=== PATIENT | female | born 1990 | race American Indian/Alaskan Native ===

== ENCOUNTER 2016-09-30 16:56 | Emergency (ER) | payer MEDICAID ==
--- NOTE | 2016-09-30 17:49 | Emergency Department Report ---
Chief Complaint: Abdominal Pain Stated Complaint: MIGRAINE HEADACHE/ABD PAIN Time Seen by Provider: 09/30/16 17:45 - HPI History of Present Illness: 26 y/o female complain of abdominal pain x 4 days .pt state that she had a seizure on thrusday .denies any vaginal discharge . - ROS Review of Systems: per HPI - Exam Vital Signs: Vital Signs 09/30/16 17:00 Temperature 98.4 F Pulse Rate 86 Respiratory 18 Rate Blood Pressure 133/85 O2 Sat by Pulse 100 Oximetry Physical Exam: GENERAL: The patient is well-developed and well-nourished. Patient is in NAD. HENT: Normocephalic. Atraumatic. Patient has moist mucous membranes. Throat: No erythema, swelling or exudates. Ears:Tympanic membranes pearly nichols ,intact , and free of exudate and erythema . EYES: Extraocular motions are intact, PERRL NECK: Supple. No meningitic signs are noted. There is no adenopathy noted. CHEST/LUNGS: Clear to auscultation bilaterally. No wheezing, rales or rhonchi noted. There is no respiratory distress noted. HEART/CARDIOVASCULAR: Regular rate and rhythm. Normal S1 S2. No murmurs, rubs , clicks, or gallops. ABDOMEN: Abdomen is soft, nontender.. Bowel sounds normoactive. There is no abdominal distention. Negative rebound tenderness. : Deferred. SKIN: There is no rash. There is no edema. There is no diaphoresis.Normal skin turgor NEURO: The patient is A&Ox3. The patient has no focal neurologic deficits. MUSCULOSKELETAL: There is no tenderness or deformity. There is no limitation range of motion. posture erect.Spine aligned,no deformities. PSYCH: Pt has appropriate mood and affect. MSE screening note: Focused history and physical exam performed. Due to findings the following was ordered: ED Disposition for MSE Condition: Stable Instructions: Abdominal Pain (ED)
[2016-09-30 18:41] LABS: Basophils % (Auto) 0.4 % (0.0-1.8); Eosinophils % (Auto) 0.3 % (0.0-4.3); Hemoglobin 11.7 gm/dl (10.1-14.3); Mean Corpuscular HGB Conc 32 % (30-34); Mean Corpuscular Volume 79 fl (79-97); Platelet Count 291 K/mm3 (140-440); Red Blood Count 4.67 M/mm3 (3.65-5.03); Red Cell Distribution Width 18.8 % (13.2-15.2); White Blood Count 5.1 K/mm3 (4.5-11.0)
[2016-09-30 18:42] LABS: Mean Corpuscular Hemoglobin 25 pg (28-32)
[2016-09-30 19:00] LABS: BUN/Creatinine Ratio 11.66; Blood Urea Nitrogen 7 mg/dL (7-17); Calcium 9.3 mg/dL (8.4-10.2); Carbon Dioxide 24 mmol/L (22-30); Chloride 99.9 mmol/L (98-107); Glucose 71 mg/dL (65-100); Potassium 3.6 mmol/L (3.6-5.0); Sodium 139 mmol/L (137-145)
[2016-09-30 19:11] LABS: Anion Gap 19 mmol/L
[2016-09-30 21:32] LABS: Bacteria,Urine 1+ /HPF (Negative); Bilirubin,Urine NEG (Negative); Blood,Urine NEG (Negative); Ketones,Urine NEG (Negative); Leukocyte Esterase,Urine TR (Negative); Mucus,Urine 3+ /HPF; Nitrite,Urine NEG (Negative); Protein,Urine <15 mg/dL mg/dL (Negative); Urobilinogen,Urine < 2.0 mg/dL (<2.0)
[2016-10-01] MEDS ORDERED: TYLENOL PO ONE (02:02)
--- NOTE | 2016-10-01 02:08 | Emergency Department Report ---
ED Abdominal Pain HPI - General Chief Complaint: Abdominal Pain Stated Complaint: MIGRAINE HEADACHE/ABD PAIN Source: patient Mode of arrival: Ambulatory Limitations: No Limitations - History of Present Illness Initial Comments: 26-year-old female with a past medical history of seizures and hypertension presents to the hospital with complaints of seizure and abdominal pain. Patient had a seizure 2 days ago at work. Patient came here to be seen left prior to evaluation. Since she has had intermittent left-sided aching 8/10 headache. No aggravating or alleviating factors reported. Patient hasn't taken anything for pain. She states she felt weak prior to the seizure. Patient's last seizure was 2 years ago when she was . She was not treated with seizure medication during the and is not currently on any seizure medication. LMP reported August 27 with . Patient complains of mild lower abdominal pain since seizure but denies vaginal discharge, vaginal bleeding, dysuria, hematuria, or fever. No reports of nausea, vomiting , blurred vision, focal weakness or numbness. She reports this is her third and she has 2 living children no reports of ectopic, miscarriages or abortions. Severity scale (0 -10): 6 - Related Data Previous Rx's Medication Instructions Recorded Last Taken Type Labetalol [Normodyne TAB] 100 mg PO BID #60 tablet 10/01/16 Unknown Rx Pnv95/Ferrous Fumarate/FA 1 each PO DAILY #30 tablet 10/01/16 Unknown Rx [Prenavite Tablet] Allergies Allergy/AdvReac Type Severity Reaction Status Date / Time latex AdvReac "PEELS Verified 09/30/16 17:05 SKIN" tramadol HCl [From Ultram] AdvReac TRIGGERS Verified 09/30/16 17:05 SEIZURES ED Review of Systems ROS: Stated complaint: MIGRAINE HEADACHE/ABD PAIN Other details as noted in HPI Comment: All other systems reviewed and negative Other: Constitutional: No fevers chills Eyes: No eye pain visual changes ENT: No ear pain or throat pain Neck: Denies pain Respiratory: Denies cough wheezing shortness of breath Cardiovascular: Denies chest pain, palpitations, syncope GI: Denies nausea, vomiting, diarrhea : Denies dysuria, urinary frequency, or urgency Musculoskeletal: Denies back pain, joint swelling Skin: Denies rash, lesions, erythema Neurologic: Denies numbness, weakness Psychiatric: Denies suicidal ideation, hallucinations ED Past Medical Hx - Past Medical History Hx Hypertension: Yes Hx Psychiatric Treatment: Yes (ANXIETY / DEPRESSION) - Surgical History Past Surgical History?: No - Social History Smoking Status: Never Smoker Substance Use Type: None - Medications Home Medications: Home Medications Medication Instructions Recorded Confirmed Last Taken Type Labetalol [Normodyne TAB] 100 mg PO BID #60 tablet 10/01/16 Unknown Rx Pnv95/Ferrous Fumarate/FA 1 each PO DAILY #30 tablet 10/01/16 Unknown Rx [Prenavite Tablet] ED Physical Exam - General Limitations: No Limitations - Other Other exam information: General: No limitations, patient is alert in no acute distress Head exam: Atraumatic, normocephalic Eyes exam: Normal appearance, pupils equal reactive to light, extraocular movements intact ENT: Moist mucous membrane, normal oropharynx Neck exam: Normal inspection, full range of motion, no meningismus nontender Respiratory exam: Clear to auscultation bilateral, no wheezes, rales, crackles Cardiovascular: Normal rate and rhythm, normal heart sounds Abdomen: Soft, nondistended, mild suprapubic tenderness, with normal bowel sounds, no rebound, or guarding Extremity: Full range of motion normal inspection no deformity Back: Normal Inspection, full range of motion, no tenderness Neurologic: Alert, oriented x3, cranial nerves intact, no motor or sensory deficit Psychiatric: normal affect, normal mood Skin: Warm, dry, intact ED Course Vital Signs 09/30/16 09/30/16 10/01/16 17:00 23:58 01:08 Temperature 98.4 F 98.7 F 98.2 F Pulse Rate 86 75 73 Respiratory 18 18 16 Rate Blood Pressure 133/85 125/76 Blood Pressure 132/56 [Left] O2 Sat by Pulse 100 100 100 Oximetry 10/01/16 10/01/16 10/01/16 01:59 03:03 03:21 Temperature Pulse Rate 107 H 78 Respiratory 25 H 17 17 Rate Blood Pressure Blood Pressure 143/75 123/72 [Left] O2 Sat by Pulse 100 100 100 Oximetry - Reevaluation(s) Reevaluation #1: 10/01/16 02:08 Tylenol and ultrasound ordered ED Medical Decision Making - Lab Data Result diagrams: 09/30/16 18:21 09/30/16 18:21 Lab Results 09/30/16 09/30/16 09/30/16 Range/Units 18:21 18:21 18:21 WBC 5.1 (4.5-11.0) K/mm3 RBC 4.67 (3.65-5.03) M/mm3 Hgb 11.7 (10.1-14.3) gm/dl Hct 37.0 (30.3-42.9) % MCV 79 (79-97) fl MCH 25 L (28-32) pg MCHC 32 (30-34) % RDW 18.8 H (13.2-15.2) % Plt Count 291 (140-440) K/mm3 Lymph % (Auto) 36.5 H (13.4-35.0) % [place] % (Auto) 5.3 (0.0-7.3) % Eos % (Auto) 0.3 (0.0-4.3) % Baso % (Auto) 0.4 (0.0-1.8) % Lymph # 1.9 (1.2-5.4) K/mm3 [place] # 0.3 (0.0-0.8) K/mm3 Eos # 0.0 (0.0-0.4) K/mm3 Baso # 0.0 (0.0-0.1) K/mm3 Seg Neutrophils % 57.5 (40.0-70.0) % Seg Neutrophils # 3.0 (1.8-7.7) K/mm3 Sodium 139 (137-145) mmol/L Potassium 3.6 (3.6-5.0) mmol/L Chloride 99.9 (98-107) mmol/L Carbon Dioxide 24 (22-30) mmol/L Anion Gap 19 mmol/L BUN 7 (7-17) mg/dL Creatinine 0.6 L (0.7-1.2) mg/dL Estimated GFR > 60 ml/min BUN/Creatinine Ratio 11.66 % Glucose 71 (65-100) mg/dL Calcium 9.3 (8.4-10.2) mg/dL HCG, Quant 29170 H (0-4) mIU/mL Urine Color (Yellow) Urine Turbidity (Clear) Urine pH (5.0-7.0) Ur Specific [place] (1.003-1.030) Urine Protein (Negative) mg/dL Urine Glucose (UA) (Negative) mg/dL Urine Ketones (Negative) mg/dL Urine Blood (Negative) Urine Nitrite (Negative) Urine Bilirubin (Negative) Urine Urobilinogen (<2.0) mg/dL Ur Leukocyte Esterase (Negative) Urine WBC (Auto) (0.0-6.0) /HPF Urine RBC (Auto) (0.0-6.0) /HPF U Epithel Cells (Auto) (0-13.0) /HPF Urine Bacteria (Auto) (Negative) /HPF Urine Mucus /HPF 09/30/16 Range/Units Unknown WBC (4.5-11.0) K/mm3 RBC (3.65-5.03) M/mm3 Hgb (10.1-14.3) gm/dl Hct (30.3-42.9) % MCV (79-97) fl MCH (28-32) pg MCHC (30-34) % RDW (13.2-15.2) % Plt Count (140-440) K/mm3 Lymph % (Auto) (13.4-35.0) % [place] % (Auto) (0.0-7.3) % Eos % (Auto) (0.0-4.3) % Baso % (Auto) (0.0-1.8) % Lymph # (1.2-5.4) K/mm3 [place] # (0.0-0.8) K/mm3 Eos # (0.0-0.4) K/mm3 Baso # (0.0-0.1) K/mm3 Seg Neutrophils % (40.0-70.0) % Seg Neutrophils # (1.8-7.7) K/mm3 Sodium (137-145) mmol/L Potassium (3.6-5.0) mmol/L Chloride (98-107) mmol/L Carbon Dioxide (22-30) mmol/L Anion Gap mmol/L BUN (7-17) mg/dL Creatinine (0.7-1.2) mg/dL Estimated GFR ml/min BUN/Creatinine Ratio % Glucose (65-100) mg/dL Calcium (8.4-10.2) mg/dL HCG, Quant (0-4) mIU/mL Urine Color Yellow (Yellow) Urine Turbidity Clear (Clear) Urine pH 6.0 (5.0-7.0) Ur Specific [place] 1.020 (1.003-1.030) Urine Protein <15 mg/dl (Negative) mg/dL Urine Glucose (UA) Neg (Negative) mg/dL Urine Ketones Neg (Negative) mg/dL Urine Blood Neg (Negative) Urine Nitrite Neg (Negative) Urine Bilirubin Neg (Negative) Urine Urobilinogen < 2.0 (<2.0) mg/dL Ur Leukocyte Esterase Tr (Negative) Urine WBC (Auto) 1.0 (0.0-6.0) /HPF Urine RBC (Auto) 3.0 (0.0-6.0) /HPF U Epithel Cells (Auto) 3.0 (0-13.0) /HPF Urine Bacteria (Auto) 1+ (Negative) /HPF Urine Mucus 3+ /HPF - Radiology Data Radiology results: report reviewed (transvaginal/pelvic ultrasound: 6 weeks 2 days IUP heart 121) - Medical Decision Making Headache improved with Tylenol. She states even during her she did not seize seizure medication. For this reason I have not prescribed any at this time since many sz meds teratogenic. Neurology follow-up will be provided. 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 Patient instructed to stop Norvasc and will be provided labetalol instead - Differential Diagnosis breakthrough seizure, electrolyte abnormality, , UTI Critical Care Time: No Critical care attestation.: If time is entered above; I have spent that time in minutes in the direct care of this critically ill patient, excluding procedure time. ED Disposition Clinical Impression: Seizure, 6 weeks gestation of Disposition: DISCHARGED TO HOME OR SELFCARE Is pt being admited?: No Does the pt Need Aspirin: No Condition: Stable Instructions: Recurrent Seizures Adult (ED), (ED) Additional Instructions: Take the medication as described. Take Tylenol only as needed for pain. 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 US shows 6 weeks and 2 day . With estimated due date 05/25/2017 Prescriptions: Labetalol [Normodyne TAB] 100 mg PO BID #60 tablet Pnv95/Ferrous Fumarate/FA [Prenavite Tablet] 1 each PO DAILY #30 tablet Referrals: TANYA SELLERS MD [Primary Care Provider] - 3-5 Days IVONE CRUZ MD [Staff Physician] - 3-5 Days DENITA FRYE MD [Staff Physician] - 3-5 Days Time of Disposition: 04:59
--- NOTE | 2016-10-01 02:58 | Ultrasound Report ---
FINAL REPORT PROCEDURE: US OB TRANSVAGINAL TECHNIQUE: Real-time transabdominal and transvaginal sonography of the uterus, placenta, amniotic fluid, adnexa, and fetus was performed with image documentation. Measurements were obtained to determine age/size. M-mode Doppler was used to document heartbeat. CPT 06135 and 25483 HISTORY: lower abd pain, COMPARISON: No prior studies are available for comparison. FINDINGS: ADDITIONAL GESTATION: None. CRL: 5.6 mm, which corresponds to a gestational age of: 6 weeks, 2 days. Yolk Sac: Normal. Embryonic Cardiac Activity: 121 beats per minute Gestational Sac: Normal. Amniotic fluid: Normal. Cervix: Normal. Right Ovary: Normal. Left Ovary: Not visualized Estimated delivery date: 05/25/2017 Uterus and adnexa: Normal. IMPRESSION: 1. Single live intrauterine gestation at approximately 6 weeks, 2 days. 2. EDC by US 05/25/2017 3. Complete anatomic survey at 18-20 weeks suggested.
--- NOTE | 2016-10-01 02:59 | Ultrasound Report ---
FINAL REPORT PROCEDURE: Obstetrical ultrasound transabdominal and transvaginal TECHNIQUE: Real-time transabdominal and transvaginal sonography of the uterus, placenta, amniotic fluid, adnexa, and fetus was performed with image documentation. Measurements were obtained to determine age/size. M-mode Doppler was used to document heartbeat. CPT 95975 and 40940 HISTORY: lower abd pain, COMPARISON: No prior studies are available for comparison. FINDINGS: ADDITIONAL GESTATION: None. CRL: 5.6 mm, which corresponds to a gestational age of: 6 weeks, 2 days. Yolk Sac: Normal. Embryonic Cardiac Activity: 121 beats per minute Gestational Sac: Normal. Amniotic fluid: Normal. Cervix: Normal. Right Ovary: Normal. Left Ovary: Not visualized Estimated delivery date: 05/25/2017 Uterus and adnexa: Normal. IMPRESSION: 1. Single live intrauterine gestation at approximately 6 weeks, 2 days. 2. EDC by US 05/25/2017 3. Complete anatomic survey at 18-20 weeks suggested. PROCEDURE: TECHNIQUE: HISTORY: COMPARISON: FINDINGS: IMPRESSION:
[2016-10-01 03:05] VITALS: BP 123/72
== END 2016-10-01 05:24 | disposition home or self-care (01) ==
LOC: ED 16:56
DX: O26.891 Other specified pregnancy related conditions, first trimester (principal); R56.9 Unspecified convulsions; O16.1 Unspecified maternal hypertension, first trimester; F32.9 Major depressive disorder, single episode, unspecified; F41.9 Anxiety disorder, unspecified; Z3A.01 Less than 8 weeks gestation of pregnancy; Z91.040 Latex allergy status; Z88.8 Allergy status to other drugs, medicaments and biological substances
CPT/HCPCS: 36415; 76801; 76817; 80048; 81001; 84702; 85025

== ENCOUNTER 2017-02-24 19:05 | Emergency (ER) | payer MEDICAID ==
[2017-02-24 19:46] LABS: Basophils % (Auto) 0.9 % (0.0-1.8); Eosinophils % (Auto) 0.8 % (0.0-4.3); Hematocrit 31.4 % (30.3-42.9); Hemoglobin 10.2 gm/dl (10.1-14.3); Mean Corpuscular HGB Conc 33 % (30-34); Mean Corpuscular Hemoglobin 26 pg (28-32); Mean Corpuscular Volume 80 fl (79-97); Platelet Count 289 K/mm3 (140-440); Red Blood Count 3.94 M/mm3 (3.65-5.03); Red Cell Distribution Width 16.5 % (13.2-15.2)
[2017-02-24 20:00] LABS: Alanine Aminotransferase 12 units/L (7-56); Albumin 4.2 g/dL (3.9-5); Albumin/Globulin Ratio 1.3 %; Alkaline Phosphatase 56 units/L (35-129); Anion Gap 18 mmol/L; BUN/Creatinine Ratio 11.25; Blood Urea Nitrogen 9 mg/dL (7-17); Calcium 9.2 mg/dL (8.4-10.2); Carbon Dioxide 24 mmol/L (22-30); Chloride 102.6 mmol/L (98-107); Glucose 89 mg/dL (65-100); Lipase 18 units/L (13-60); Potassium 3.5 mmol/L (3.6-5.0); Sodium 141 mmol/L (137-145); Total Protein 7.4 g/dL (6.3-8.2)
[2017-02-25 05:13] LABS: Bilirubin,Urine NEG (Negative); Blood,Urine NEG (Negative); Ketones,Urine NEG (Negative); Leukocyte Esterase,Urine SM (Negative); Mucus,Urine 3+ /HPF; Nitrite,Urine NEG (Negative); Protein,Urine <15 mg/dL mg/dL (Negative); Urobilinogen,Urine < 2.0 mg/dL (<2.0)
--- NOTE | 2017-02-25 06:22 | Emergency Department Report ---
ED Abdominal Pain HPI - General Chief Complaint: Abdominal Pain Stated Complaint: LOWER BACK AND STOMACH PAIN/POSS SEIZURE Time Seen by Provider: 02/25/17 06:21 Source: patient Mode of arrival: Ambulatory Limitations: No Limitations - History of Present Illness Initial Comments: Patient complains of lateral pelvic pain since she had an in December. She states that she has been going to the doctor that did her to get dip Dep[place] shots for control. She doesn't recognize that this must be a manager flight. She states that she is not receiving chronic care or pain management from this physician. He denies any recent vaginal bleeding or discharge. She denies fever or chills. She has no other symptoms. It is uncertain why she chose today for evaluation. MD Complaint: abdominal pain -: month(s) Location: LLQ (greater than right lower quadrant) Radiation: none Migration to: no migration Severity: moderate Quality: aching Consistency: constant Improves With: nothing Worsens With: nothing Associated Symptoms: denies other symptoms - Related Data Home Medications Medication Instructions Recorded Confirmed Last Taken amLODIPine [Norvasc] 5 mg PO DAILY 02/25/17 02/25/17 Unknown Previous Rx's Medication Instructions Recorded Last Taken Type HYDROcodone/APAP 5-325 [[place] 1 each PO Q6HR PRN #10 tablet 02/25/17 Unknown Rx 5/325] Allergies Allergy/AdvReac Type Severity Reaction Status Date / Time latex AdvReac "PEELS Verified 09/30/16 17:05 SKIN" tramadol HCl [From Ultram] AdvReac TRIGGERS Verified 09/30/16 17:05 SEIZURES ED Review of Systems ROS: Stated complaint: LOWER BACK AND STOMACH PAIN/POSS SEIZURE Other details as noted in HPI Constitutional: denies: chills, fever Eyes: denies: eye pain, eye discharge, vision change ENT: denies: ear pain, throat pain Respiratory: denies: cough, shortness of breath, wheezing Cardiovascular: denies: chest pain, palpitations Endocrine: no symptoms reported Gastrointestinal: abdominal pain. denies: nausea, diarrhea Genitourinary: denies: urgency, dysuria, discharge Musculoskeletal: denies: back pain, joint swelling, arthralgia Skin: denies: rash, lesions Neurological: denies: headache, weakness, paresthesias Psychiatric: denies: anxiety, depression Hematological/Lymphatic: denies: easy bleeding, easy bruising ED Past Medical Hx - Past Medical History Hx Hypertension: Yes Hx Psychiatric Treatment: Yes (ANXIETY / DEPRESSION) - Social History Smoking Status: Never Smoker Substance Use Type: None - Medications Home Medications: Home Medications Medication Instructions Recorded Confirmed Last Taken Type HYDROcodone/APAP 5-325 [[place] 1 each PO Q6HR PRN #10 tablet 02/25/17 Unknown Rx 5/325] amLODIPine [Norvasc] 5 mg PO DAILY 02/25/17 02/25/17 Unknown History ED Physical Exam - General Limitations: No Limitations General appearance: alert, in no apparent distress - Head Head exam: Present: atraumatic, normocephalic - Eye Eye exam: Present: normal appearance. Absent: PERRL, EOMI, scleral icterus - ENT ENT exam: Present: normal exam, mucous membranes moist - Neck Neck exam: Present: normal inspection. Absent: tenderness, meningismus - Respiratory Respiratory exam: Present: normal lung sounds bilaterally. Absent: respiratory distress - Cardiovascular Cardiovascular Exam: Present: regular rate, normal rhythm. Absent: systolic murmur, diastolic murmur, rubs, gallop - GI/Abdominal GI/Abdominal exam: Present: soft, normal bowel sounds. Absent: distended, tenderness, guarding, rebound, rigid - Extremities Exam Extremities exam: Present: normal inspection - Back Exam Back exam: Present: normal inspection - Neurological Exam Neurological exam: Present: alert, oriented X3, CN II-XII intact. Absent: motor sensory deficit - Psychiatric Psychiatric exam: Present: normal affect, normal mood - Skin Skin exam: Present: warm, dry, intact, normal color. Absent: rash ED Course Vital Signs 02/24/17 02/25/17 19:18 07:03 Temperature 99 F Pulse Rate 73 72 Respiratory 18 18 Rate Blood Pressure 135/94 Blood Pressure 144/65 [Left] O2 Sat by Pulse 100 Oximetry - Reevaluation(s) Reevaluation #1: Patient was resting comfortably at the time of my encounter. She is appropriate for outpatient disposition. She will be given analgesics and a referral to [facility]TEGR[facility] A[facility]. 02/25/17 09:22 ED Medical Decision Making - Lab Data Result diagrams: 02/24/17 19:26 02/24/17 19:26 Laboratory Results - last 24 hr 06/25/17 06/25/17 06/25/17 19:26 19:26 19:26 WBC 4.0 L RBC 3.94 Hgb 10.2 Hct 31.4 MCV 80 MCH 26 L MCHC 33 RDW 16.5 H Plt Count 289 Lymph % (Auto) 47.9 H [place] % (Auto) 6.8 Eos % (Auto) 0.8 Baso % (Auto) 0.9 Lymph # 1.9 [place] # 0.3 Eos # 0.0 Baso # 0.0 Seg Neutrophils % 43.6 Seg Neutrophils # 1.7 L Sodium 141 Potassium 3.5 L Chloride 102.6 Carbon Dioxide 24 Anion Gap 18 BUN 9 Creatinine 0.8 Estimated GFR > 60 BUN/Creatinine Ratio 11.25 Glucose 89 Calcium 9.2 Total Bilirubin 0.30 AST 17 ALT 12 Alkaline Phosphatase 56 Total Protein 7.4 Albumin 4.2 Albumin/Globulin Ratio 1.3 Lipase 18 HCG, Quant < 2 Urine Color Urine Turbidity Urine pH Ur Specific [place] Urine Protein Urine Glucose (UA) Urine Ketones Urine Blood Urine Nitrite Urine Bilirubin Urine Urobilinogen Ur Leukocyte Esterase Urine WBC (Auto) Urine RBC (Auto) U Epithel Cells (Auto) Urine Mucus 02/25/17 04:15 WBC RBC Hgb Hct MCV MCH MCHC RDW Plt Count Lymph % (Auto) [place] % (Auto) Eos % (Auto) Baso % (Auto) Lymph # [place] # Eos # Baso # Seg Neutrophils % Seg Neutrophils # Sodium Potassium Chloride Carbon Dioxide Anion Gap BUN Creatinine Estimated GFR BUN/Creatinine Ratio Glucose Calcium Total Bilirubin AST ALT Alkaline Phosphatase Total Protein Albumin Albumin/Globulin Ratio Lipase HCG, Quant Urine Color Yellow Urine Turbidity Clear Urine pH 6.0 Ur Specific [place] 1.024 Urine Protein <15 mg/dl Urine Glucose (UA) Neg Urine Ketones Neg Urine Blood Neg Urine Nitrite Neg Urine Bilirubin Neg Urine Urobilinogen < 2.0 Ur Leukocyte Esterase Sm Urine WBC (Auto) 3.0 Urine RBC (Auto) 1.0 U Epithel Cells (Auto) 6.0 Urine Mucus 3+ - Radiology Data Radiology results: report reviewed interpreted by me: Follicular cysts. No acute process Critical care attestation.: If time is entered above; I have spent that time in minutes in the direct care of this critically ill patient, excluding procedure time. ED Disposition Clinical Impression: Pelvic pain, Follicular cyst of ovary Disposition: - TO HOME OR SELFCARE Is pt being admited?: No Does the pt Need Aspirin: No Condition: Stable Instructions: Abdominal Pain (ED), Ovarian Cyst (ED) Additional Instructions: Follow-up with a manager flight as recommended. He do not have one see referral. Rx for pain as needed. Return any acute change. Prescriptions: HYDROcodone/APAP 5-325 [[place] 5/325] 1 each PO Q6HR PRN #10 tablet PRN Reason: Pain Referrals: PRIMARY CAREMD [Primary Care Provider] - 3-5 Days NORMAN RUBIN MD [Staff Physician] - 3-5 Days Time of Disposition: 09:24
[2017-02-25 07:07] VITALS: BP 144/65
--- NOTE | 2017-02-25 08:44 | Ultrasound Report ---
FINAL REPORT PROCEDURE: US PELVIC COMPLETE TECHNIQUE: Real-time transabdominal sonography in multiple planes of pelvis was performed with image documentation. This examination was performed without Doppler. Vascular abnormalities, including ovarian torsion, will not be detectable without Doppler evaluation. CPT 18359 HISTORY: Left lower quadrant pain. 1 month ago. Still bleeding. LMP 01/28/2017. COMPARISON: 10/01/2016 FINDINGS: UTERUS Size: 8.0 cm. Endometrial thickness: 10 mm. Sliver of endometrial fluid Orientation: anteverted. Cervix: Normal. Fibroids/masses: None. RIGHT Ovary: 3.3 x 2.2 cm. Appearance: Normal flow. Multiple small cysts likely follicles 1 centimeter or less range. Possible involuting residual corpus luteum cyst. Underlying concomitant or interval ectopic not entirely excludable but not favored at this time. No ring of fire cystic mass lesion depicted LEFT Ovary: 2.7 x 1.8 cm. Appearance: Normal flow. Multiple small follicles less than 1 centimeter. Pelvic fluid: Minimal free fluid. Other: No definitive IUP, intrauterine or retained products of conception, RPC seen at this time. If symptoms and or concern persists followup is advised IMPRESSION: No IUP or RPC see seen at this time Mildly thickened endometrium Minimal free fluid Follicular appearing cysts in the adnexa right greater than left Details above Followup advised as warranted
--- NOTE | 2017-02-25 08:51 | Ultrasound Report ---
FINAL REPORT PROCEDURE: US TRANSVAGINAL TECHNIQUE: Real-time transvaginal sonography in multiple planes of the pelvis was performed with image documentation. This examination was performed without Doppler. Vascular abnormalities, including ovarian torsion, will not be detectable without Doppler evaluation. CPT 53239 HISTORY: llq pain A/B one mo ago COMPARISON: Complete pelvic ultrasound today. Prior ultrasound 10/01/2016. FINDINGS: UTERUS Size: 8.0 cm. Endometrial thickness: 10 mm. Sliver or trace amount of endometrial fluid Orientation: anteverted. Cervix: Normal. Fibroids/masses: None. RIGHT Ovary: 3.3 x 2.2 cm. Appearance: Normal flow right ovary. Small cysts likely follicles in the 1 centimeter or less range, but greater on the right versus left. Largest cyst 1.0 x 0.5 centimeters. An underlying involuting cyst could be present. An underlying ectopic is not entirely excludable however no definitive ring of fire vascular color flow pattern seen to support this same. LEFT Ovary: 2.7 x 1.8 cm. Appearance: Normal flow left ovary. Suspect small cysts such as follicles, nonspecific less than 1 centimeter.. Pelvic fluid: Minimal free fluid. Other: No IUP, retained products of conception or definitive evidence for ectopic . IMPRESSION: No definitive IUP or RPC seen at this time Minimal free fluid Mildly thickened endometrium with sliver or trace of endometrial fluid No ovarian torsion seen Details above Followup advised as warranted
[2017-02-25] MEDS ORDERED: NORCO 5/325 PO ONE (09:26)
== END 2017-02-25 09:52 | disposition home or self-care (01) ==
LOC: ED 19:05
DX: N83.00 Follicular cyst of ovary, unspecified side (principal); I10 Essential (primary) hypertension
CPT/HCPCS: 36415; 76830; 76856; 80053; 81001; 83690; 84702; 85025; 99284

== ENCOUNTER 2017-08-29 13:03 | Emergency (ER) | payer MEDICAID ==
[2017-08-29] MEDS ORDERED: TORADOL IM ONE (19:19)
--- NOTE | 2017-08-29 19:48 | Emergency Department Report ---
ED ENT HPI - General Chief complaint: Dental/Oral Stated complaint: HEAD MOUTH PAIN Time Seen by Provider: 08/29/17 19:08 Source: patient Mode of arrival: Ambulatory Limitations: No Limitations - History of Present Illness Initial comments: This is a 27-year-old female nontoxic, well nourished in appearance, no acute signs of distress presents to the ED with c/o of chronic intermittent toothache. Patient stated this has been going on for many years but denies follow-up with dentist. Patient denies any facial swelling, trismus, fever, chills headache, nausea, vomiting, chest pain, shortness of breathe, headache or stiff neck. Patient states allergies to latex and tramadol. Past medical history includes hypertension that she is currently following with a primary care doctor and takes amlodipine. MD complaint: tooth pain -: year(s) Location: tooth # 1 - toothache Severity: mild Severity scale (0 -10): 8 Quality: aching Consistency: constant Improves with: none Worsens with: none Context- Dental: history of dental caries Associated Symptoms: gum swelling, toothache. denies: fever, cough, pain with swallowing, sore throat, tinnitus, hearing loss, discharge from ear, rhinorrhea - Related Data Home Medications Medication Instructions Recorded Confirmed Last Taken amLODIPine [Norvasc] 5 mg PO DAILY 02/25/17 02/25/17 Unknown Previous Rx's Medication Instructions Recorded Last Taken Type HYDROcodone/APAP 5-325 [[place] 1 each PO Q6HR PRN #10 tablet 02/25/17 Unknown Rx 5/325] Acetaminophen/Codeine [Tylenol 1 tab PO Q6H PRN #12 tab 08/29/17 Unknown Rx /Codeine # 3 tab] Amoxicillin/K Clav Tab [Augmentin 1 tab PO Q12HR #20 tab 08/29/17 Unknown Rx 875 mg] Allergies Allergy/AdvReac Type Severity Reaction Status Date / Time latex AdvReac "PEELS Verified 09/30/16 17:05 SKIN" tramadol HCl [From Ultram] AdvReac TRIGGERS Verified 09/30/16 17:05 SEIZURES ED Dental HPI - General Chief complaint: Dental/Oral Stated complaint: HEAD MOUTH PAIN Time Seen by Provider: 08/29/17 19:08 Source: patient Mode of arrival: Ambulatory Limitations: No Limitations - Related Data Home Medications Medication Instructions Recorded Confirmed Last Taken amLODIPine [Norvasc] 5 mg PO DAILY 02/25/17 02/25/17 Unknown Previous Rx's Medication Instructions Recorded Last Taken Type HYDROcodone/APAP 5-325 [[place] 1 each PO Q6HR PRN #10 tablet 02/25/17 Unknown Rx 5/325] Acetaminophen/Codeine [Tylenol 1 tab PO Q6H PRN #12 tab 08/29/17 Unknown Rx /Codeine # 3 tab] Amoxicillin/K Clav Tab [Augmentin 1 tab PO Q12HR #20 tab 08/29/17 Unknown Rx 875 mg] Allergies Allergy/AdvReac Type Severity Reaction Status Date / Time latex AdvReac "PEELS Verified 09/30/16 17:05 SKIN" tramadol HCl [From Ultram] AdvReac TRIGGERS Verified 09/30/16 17:05 SEIZURES ED Review of Systems ROS: Stated complaint: HEAD MOUTH PAIN Other details as noted in HPI Constitutional: denies: chills, fever Eyes: denies: eye pain, eye discharge, vision change ENT: dental pain. denies: ear pain, throat pain Respiratory: denies: cough, shortness of breath, wheezing Cardiovascular: denies: chest pain, palpitations Endocrine: no symptoms reported Gastrointestinal: denies: abdominal pain, nausea, diarrhea Genitourinary: denies: urgency, dysuria, discharge Musculoskeletal: denies: back pain, joint swelling, arthralgia Skin: denies: rash, lesions Neurological: denies: headache, weakness, paresthesias Psychiatric: denies: anxiety, depression Hematological/Lymphatic: denies: easy bleeding, easy bruising ED Past Medical Hx - Past Medical History Hx Hypertension: Yes Hx Psychiatric Treatment: Yes (ANXIETY / DEPRESSION) - Social History Smoking Status: Never Smoker Substance Use Type: None - Medications Home Medications: Home Medications Medication Instructions Recorded Confirmed Last Taken Type HYDROcodone/APAP 5-325 [[place] 1 each PO Q6HR PRN #10 tablet 02/25/17 Unknown Rx 5/325] amLODIPine [Norvasc] 5 mg PO DAILY 02/25/17 02/25/17 Unknown History Acetaminophen/Codeine [Tylenol 1 tab PO Q6H PRN #12 tab 08/29/17 Unknown Rx /Codeine # 3 tab] Amoxicillin/K Clav Tab [Augmentin 1 tab PO Q12HR #20 tab 08/29/17 Unknown Rx 875 mg] ED Physical Exam - General Limitations: No Limitations General appearance: alert, in no apparent distress - Head Head exam: Present: atraumatic, normocephalic, normal inspection - Eye Eye exam: Present: normal appearance, PERRL, EOMI. Absent: scleral icterus, conjunctival injection, nystagmus, periorbital swelling, periorbital tenderness Pupils: Present: normal accommodation - ENT ENT exam: Present: mucous membranes moist, TM's normal bilaterally, normal external ear exam - Expanded ENT Exam Expanded Ear exam: Present: normal external inspection Mouth exam: Present: normal external inspection, tongue normal. Absent: drooling, trismus, muffled voice, tongue elevation, laceration Teeth exam: Present: dental caries, fractured tooth # (16), dental tenderness # (16), gingival enlargement, other (No facial swelling. No abscess) 1 - Fractured, Dental Tenderness Throat exam: Positive: normal inspection. Negative: tonsillar erythema, tonsillomegaly, tonsillar exudate, R peritonsillar mass, L peritonsillar mass - Neck Neck exam: Present: normal inspection, full ROM. Absent: tenderness, meningismus, lymphadenopathy, thyromegaly - Respiratory Respiratory exam: Present: normal lung sounds bilaterally. Absent: respiratory distress, wheezes, rales, rhonchi, stridor, chest wall tenderness, accessory muscle use, decreased breath sounds, prolonged expiratory - Cardiovascular Cardiovascular Exam: Present: regular rate, normal rhythm, normal heart sounds. Absent: irregular rhythm, systolic murmur, diastolic murmur, rubs, gallop - GI/Abdominal GI/Abdominal exam: Present: soft, normal bowel sounds. Absent: distended, tenderness, guarding, rebound, rigid, diminished bowel sounds - Rectal Rectal exam: Present: deferred - Extremities Exam Extremities exam: Present: normal inspection, full ROM, normal capillary refill. Absent: tenderness, pedal edema, joint swelling, calf tenderness - Back Exam Back exam: Present: normal inspection, full ROM. Absent: tenderness, CVA tenderness (R), CVA tenderness (L), muscle spasm, paraspinal tenderness, vertebral tenderness, rash noted - Neurological Exam Neurological exam: Present: alert, oriented X3, CN II-XII intact, normal gait, reflexes normal - Psychiatric Psychiatric exam: Present: normal affect, normal mood - Skin Skin exam: Present: warm, dry, intact, normal color. Absent: rash ED Course Vital Signs 08/29/17 13:25 Temperature 99.1 F Pulse Rate 100 H Respiratory 18 Rate Blood Pressure 146/106 O2 Sat by Pulse 100 Oximetry - Reevaluation(s) Reevaluation #1: 08/29/17 19:55 Patient is speaking in full sentences with no signs of distress noted. Critical care attestation.: If time is entered above; I have spent that time in minutes in the direct care of this critically ill patient, excluding procedure time. ED Disposition Clinical Impression: Dental caries, Gingivitis Disposition: DC- TO HOME OR SELFCARE Is pt being admited?: No Does the pt Need Aspirin: No Condition: Stable Instructions: Acetaminophen/Codeine (By mouth), Amoxicillin/Clavulanate Potassium (By mouth) Additional Instructions: Follow-up with a dentist in 3-5 days or if symptoms worsen and continue return to emergency room as soon as possible. Do not operate any machinery while taking Tylenol No. 3 due to drowsiness Prescriptions: Acetaminophen/Codeine [Tylenol /Codeine # 3 tab] 1 tab PO Q6H PRN #12 tab PRN Reason: Pain Amoxicillin/K Clav Tab [Augmentin 875 mg] 1 tab PO Q12HR #20 tab Referrals: HILARY SELLERS MD [Primary Care Provider] - 3-5 Days ELIANE SURESH MD [Staff Physician] - 3-5 Days [facility] [Outside] - 3-5 Days [facility] [Outside] - 3-5 Days Forms: Work/School Release Form(ED)
[2017-08-29 20:20] VITALS: BP 139/90
== END 2017-08-29 20:35 | disposition home or self-care (01) ==
LOC: ED 13:03
DX: K02.9 Dental caries, unspecified (principal); K05.10 Chronic gingivitis, plaque induced; I10 Essential (primary) hypertension; F32.9 Major depressive disorder, single episode, unspecified; F41.9 Anxiety disorder, unspecified; Z91.040 Latex allergy status; Z88.8 Allergy status to other drugs, medicaments and biological substances
CPT/HCPCS: 96372; 99282; J1885

== ENCOUNTER 2019-01-30 13:10 | Inpatient (IN) | payer MEDICAID ==
[2019-01-30] MEDS ORDERED: LACTATED RINGERS 2,000 ML ONE ×2 (13:25→14:01)
[2019-01-30] MEDS ORDERED: PITOCin/NS 20 UNIT/1000ML DRIP 20,000 MILLIUNITS/1,000 ML BAG IV ONE (13:25)
[2019-01-30] MEDS ORDERED: LACTATED RINGERS 1,000 ML IV ONE (13:55)
[2019-01-30] MEDS ORDERED: AMPICILLIN/NS 2 GM/100 ML 2 GM/100 ML BAG IV ONE ×2 (13:55→14:01)
[2019-01-30] MEDS ORDERED: SUBLIMAZE IV ONE (13:55)
[2019-01-30] MEDS ORDERED: LACTATED RINGERS 1,000 ML IV SCH (14:00)
[2019-01-30] MEDS ORDERED: SUBLIMAZE ONE (14:01)
--- NOTE | 2019-01-30 14:23 | History and Physical Report ---
History of Present Illness Date of examination: 01/30/19 Date of admission: 01/30/2019 Chief complaint: Intense labor pains History of present illness: 28 yo AA Fe , AURE 01/26/19, 40w4d, presents in active labor. GBS Negative. Pt reports care with [employer] [facility], Records not available on admission. Records requested. Past History Past Medical History: no pertinent history Past Surgical History: no surgical history [employer] History: other (Pt denies any hx of STI or abnormal PAP). denies: abnormal PAP smear, gonorrhea, hepatitis B, hepatitis C, herpes, HIV, syphilis, trichomonas Family/Genetic History: none (Denies) Social history: no significant social history, single, lives with family, full code. denies: smoking, alcohol abuse, prescription drug abuse, IV drug use - Obstetrical History Expected Date of Delivery: 01/26/19 Actual Gestation: 40 Week(s) 4 Day(s) : 5 Para: 3 Hx # Term Pregnancies: 2 Number of Pregnancies: 0 Spontaneous Abortions: 0 Induced : 3 Number of Living Children: 2 Medications and Allergies Allergies Allergy/AdvReac Type Severity Reaction Status Date / Time latex AdvReac "PEELS Verified 09/30/16 17:05 SKIN" tramadol HCl [From Ultram] AdvReac TRIGGERS Verified 09/30/16 17:05 SEIZURES Home Medications Medication Instructions Recorded Confirmed Last Taken Type Vit-Fe Fumar-FA [ 1 tab PO QDAY 01/30/19 01/30/19 Unknown History Vitamin] Active Meds: Active Medications Fentanyl (Sublimaze) 100 mcg IV ONCE ONE Stop: 01/30/19 13:56 Lactated Ringer's (Lactated Ringers) 1,000 mls @ 125 mls/hr IV DIRECT CRISTINA Lactated Ringer's (Lactated Ringers) 1,000 mls @ 999 mls/hr IV BOLUS ONE Stop: 01/30/19 14:55 Ampicillin Sodium (Ampicillin/Ns 2 Gm/100 Ml) 2 gm in 100 mls @ 100 mls/hr IV ONCE ONE; Protocol Stop: 01/30/19 14:54 Review of Systems Eyes: normal appearance Cardiovascular: shortness of breath, no chest pain Respiratory: no shortness of breath Breasts: normal Gastrointestinal: abdominal pain, no nausea, no vomiting, no diarrhea, no constipation Genitourinary: normal appearance, vaginal bleeding, contractions, no leakage of fluid, no genital sores Integumentary: no rash, no sores, no lesions - Vital Signs Vital signs: Vital Signs Pulse BP 81 121/77 01/30/19 13:36 01/30/19 13:36 Temp Pulse Resp BP Pulse Ox 81 121/77 01/30/19 13:36 01/30/19 13:36 - Physical Exam Breasts: Positive: normal Cardiovascular: Regular rate, Normal S1, Normal S2, No murmurs Lungs: Positive: Clear to auscultation, Normal air movement Abdomen: Positive: normal appearance, soft, normal bowel sounds. Negative: distention Genitourinary (Female): Positive: normal external genitalia, normal perenium Vagina: Positive: normal moisture, other (normal bloody show) Uterus: Positive: enlarged (gravid) Adnexa: both: normal Extremities: Positive: normal Deep Tendon Reflex Grade: Normal +2 - Obstetrical FHR: category 1 Uterine Contraction Monitor Mode: External Cervical Dilatation: 7 (buldging BOW) Cervical Effacement Percentage: 80 station: -1 Uterine Contraction Frequency (min): 2-3 Uterine Contraction Duration: 60-90 Uterine Contraction Pattern: Irregular Uterine Tone Measurement Phase: Resting Uterine Contraction Intensity: Strong/Firm Results All other labs normal. Assessment and Plan A: Term IUP Active Labor GBS Negative Category 1 tracing P: Admit to L&D; Routine labor orders May have IV pain med/epidural Anticipate
[2019-01-30 14:50] LABS: Basophils % (Auto) 0.3 % (0.0-1.8); Eosinophils % (Auto) 0.1 % (0.0-4.3); Hematocrit 30.8 % (30.3-42.9); Hemoglobin 10.3 gm/dl (10.1-14.3); Lymphocytes # (Auto) 2.1 K/mm3 (1.2-5.4); Lymphocytes % (Auto) 22.4 % (13.4-35.0); Mean Corpuscular HGB Conc 34 % (30-34); Mean Corpuscular Volume 90 fl (79-97); Monocytes # (Auto) 0.6 K/mm3 (0.0-0.8); Monocytes % (Auto) 6.6 % (0.0-7.3); Platelet Count 334 K/mm3 (140-440); Red Blood Count 3.43 M/mm3 (3.65-5.03); Red Cell Distribution Width 16.1 % (13.2-15.2)
--- NOTE | 2019-01-30 15:30 | Procedure Note ---
OB Delivery Note - Delivery Date of Delivery: 01/30/19 (15:06) Surgeon: JUAN FRANCISCO CAMPOS (ILDA) Estimated blood loss: 100cc - Vaginal Delivery presentation: vertex Delivery position: OA (JULIO CESAR) Delivery induction: none Delivery monitor: external FHT, external uterine Route of delivery: (15:06) Delivery placenta: spontaneous (15:13) Delivery cord: 3 umbilical vessels Delivery laceration: none Anesthesia: intravenous Delivery comments: viable female infant JULIO CESAR position over intact perineum at 15:06. Vigorous to maternal abdomen. Delayed cord clamping and then cut by FOB with my guidance. Cord blood collected per protocol. Spontaneous lutz delivery of intact placenta at 15:13, 3VC. Discarded. FF@U,-1. Small lochia. No tears or lacerations. Infant and mother left in stable condition in L&D. EBL 100ml. - Infant A at 1 minute: 8 at 5 minutes: 9 Gender: Female (7lbs 10oz, 3472 grams)
[2019-01-30] MEDS ORDERED: BENADRYL PO PRN (15:31)
[2019-01-30] MEDS ORDERED: TUCKS PAD TP PRN (15:31)
[2019-01-30] MEDS ORDERED: PHENERGAN PO PRN (15:31)
[2019-01-30] MEDS ORDERED: LANSINOH TP PRN (15:31)
[2019-01-30] MEDS ORDERED: MILK OF MAGNESIA PO PRN (15:31)
[2019-01-30] MEDS ORDERED: DULCOLAX PR PRN (15:31)
[2019-01-30] MEDS ORDERED: TYLENOL PO PRN (15:31)
[2019-01-30] MEDS ORDERED: ZOFRAN IV PRN (15:31)
[2019-01-30] MEDS: IBUPROFEN PO SCH ×2 (15:49→21:28)
[2019-01-30] MEDS: NORCO 5/325 PO PRN ×2 (15:58→21:29)
[2019-01-30] MEDS ORDERED: SODIUM CHLORIDE FLUSH SYRINGE 10 ML IV NR (16:00)
[2019-01-31 05:34] LABS: Hemoglobin 7.8 gm/dl (10.1-14.3)
[2019-01-31] MEDS: IBUPROFEN PO SCH ×4 (05:55→22:07)
[2019-01-31] MEDS: NORCO 5/325 PO PRN ×3 (05:56→22:07)
[2019-01-31 06:46] LABS: Hematocrit 23.5 % (30.3-42.9)
--- NOTE | 2019-01-31 14:14 | Progress Note ---
Assessment and Plan A: day 1 S/P spontaneous vaginal delivery. Anemia secondary to and blood loss. P: Supplement with iron. Anticipate discharge tomorrow. Subjective - Subjective Date of service: 01/31/19 Principal diagnosis: day 1 S/P spontaneous vaginal delivery Interval history: day 1 S/P spontaneous vaginal delivery. Doing well. Reports mild afterbirth cramping. Patient is voiding without difficulty, ambulating well, tolerating a regular diet without nausea or vomiting. Patient denies headache, cough, chest pain, shortness of breath, leg pain, abdominal pain, dizziness, or heavy bleeding. Patient reports: appetite normal, voiding normally, pain well controlled, flatus, ambulating normally, no dizzy ambulation, no nauseated : doing well Objective - Vital Signs Latest vital signs: Vital Signs Temp Pulse Resp BP BP Pulse Ox 01/31/19 13:05 97.1 F L 76 18 98/62 98 01/31/19 08:59 98.2 F 73 18 104/71 97 01/31/19 01:02 98.2 F 77 20 108/62 97 01/30/19 20:26 98.2 F 73 20 96/55 99 01/30/19 17:25 98.1 F 77 20 101/65 01/30/19 16:39 68 101/56 01/30/19 16:10 72 135/79 01/30/19 15:53 74 111/68 01/30/19 15:38 81 103/58 01/30/19 15:25 97.4 F L 18 01/30/19 15:24 75 104/60 Intake and Output 01/30/19 01/31/19 01/31/19 23:59 07:59 15:59 Intake Total 240 Output Total 575 400 Balance -575 -160 Intake: Oral 240 Output: Urine 575 400 Void 575 400 Other: Total, Intake Amount 240 Total, Output Amount 300 400 # Voids Void 2 3 - Exam Cardiovascular: Present: Regular rate, Normal S1, Normal S2, No murmurs Lungs: Present: Clear to auscultation Abdomen: Present: normal appearance, soft. Absent: distention, tenderness, guarding, rigidity Uterus: Present: normal, firm, fundal height below umbilicus. Absent: bogginess, tenderness Extremities: Present: normal. Absent: tenderness, edema - Labs Labs: Abnormal lab results 01/30/19 01/31/19 Range/Units 13:30 04:55 RBC 3.43 L (3.65-5.03) M/mm3 Hgb 7.8 L (10.1-14.3) gm/dl Hct 23.5 L D (30.3-42.9) % RDW 16.1 H (13.2-15.2) % Seg Neutrophils % 70.6 H (40.0-70.0) %
[2019-01-31] MEDS: FEOSOL PO SCH ×2 (16:00→20:09)
[2019-02-01] MEDS: NORCO 5/325 PO PRN (04:55)
[2019-02-01] MEDS: IBUPROFEN PO SCH ×2 (04:55→15:30)
[2019-02-01] MEDS: FEOSOL PO SCH (10:30)
--- NOTE | 2019-02-01 11:35 | Progress Note ---
Assessment and Plan A: day 2 S/P spontaneous vaginal delivery. Anemia secondary to and blood loss. UTI. P: Discharge patient home today. The following Rx were called to [facility] pharmacy for patient: Ferrous Sulfate 325 mg, #90, 1 po TID, 1 RF and Augmentin 500 mg, #14, 1 po BID. discharge instructions and warning signs discussed with patient. Advised patient to avoid intercourse, driving and heavy housework, and lifting. Advised patient to follow up in 1 week at [facility] for hemoglobin and hematocrit check and again in 6 weeks for visit. Advised pt. to drink plenty of water. Pt. voiced understanding of all instructions. Subjective - Subjective Date of service: 02/01/19 Principal diagnosis: day 2 S/P spontaneous vaginal delivery Interval history: day 2 S/P spontaneous vaginal delivery. Doing well. Reports mild dysuria and strong odor to urine. Denies flank pain, back pain, fever, chils, malaise, or nausea/vomiting. Patient is voiding without difficulty, ambulating well, tolerating a regular diet without nausea or vomiting. Patient denies headache, cough, chest pain, shortness of breath, leg pain, abdominal pain, dizziness, or heavy bleeding. Patient reports: appetite normal, voiding normally, pain well controlled, flatus, ambulating normally, no dizzy ambulation, no nauseated : doing well Objective - Vital Signs Latest vital signs: Vital Signs Temp Pulse Resp BP BP Pulse Ox 02/01/19 08:44 97.9 F 72 18 117/83 99 01/31/19 23:59 97.8 F 63 18 95/56 100 01/31/19 17:18 99.2 F 63 18 109/58 98 01/31/19 13:05 97.1 F L 76 18 98/62 98 Intake and Output 01/31/19 02/01/19 02/01/19 23:59 07:59 15:59 Intake Total 240 Balance 240 Intake: Oral 240 Other: Total, Intake Amount 240 # Voids Void 1 1 - Exam Narrative Exam: No CVAT bilaterally. Cardiovascular: Present: Regular rate, Normal S1, Normal S2 Lungs: Present: Clear to auscultation Abdomen: Present: normal appearance, soft. Absent: distention, tenderness, guarding, rigidity Uterus: Present: normal, firm, fundal height below umbilicus. Absent: bogginess, tenderness Extremities: Present: normal. Absent: tenderness, edema
--- NOTE | 2019-02-01 11:41 | Discharge Summary ---
Providers - Providers Date of Admission: 01/30/19 15:22 Date of discharge: 02/01/19 Attending physician: VALENTINA SWAIN MD None Primary care physician: VALENTINA SWAIN MD Hospitalization Reason for admission: active labor Delivery: Episiotomy: none Other procedures: none complications: none Discharge diagnosis: IUP at term delivered baby: female Pertinent studies: Labs Hospital course: Normal hospital course. Condition at discharge: Good Disposition: DC-01 TO HOME OR SELFCARE - Discharge Diagnoses (1) Term delivered Status: Acute (2) Anemia, blood loss Status: Acute Plan - Provider Discharge Summary Activity: routine, no sex for 6 weeks, no heavy lifting 4 weeks, no strenuous exercise Diet: routine Instructions: routine Additional instructions: Rx Ferrous Sulfate and Augmentin called to [facility] pharmacy on [address]. Call your doctor immediately for: * Fever > 100.5 * Heavy vaginal bleeding ( >1 pad per hour) * Severe persistent headache * Shortness of breath * Reddened, hot, painful area to leg or breast - Follow up plan Follow up: VALENTINA SWAIN MD [Primary Care Provider] - 7 Days Forms: [facility] Discharge Summary
[2019-02-01 17:34] VITALS: BP 112/60
== END 2019-02-01 16:45 | disposition home or self-care (01) | DRG 774 ==
LOC: TRG 13:10 → LD 13:16 → TRG 15:20 → LD 15:22 → OB 17:35
PROVIDERS: ADMIT Obstetrics & Gynecology; ATTEND Obstetrics & Gynecology
PROC: 10E0XZZ Delivery of Products of Conception, External Approach (ICD-10-PCS; principal; 2019-01-30)
DX: O75.3 Other infection during labor (principal); O99.02 Anemia complicating childbirth; D50.0 Iron deficiency anemia secondary to blood loss (chronic); Z37.0 Single live birth; Z3A.40 40 weeks gestation of pregnancy; Z79.899 Other long term (current) drug therapy
CPT/HCPCS: 36415; 85014; 85018; 85025; 86850; 86900; 86901; G0378; J0290; J2590; J3010; J7120